=== PATIENT | male | born 1980 | race Caucasian/White ===

== ENCOUNTER 2017-07-28 21:23 | Emergency (ER) | payer SELFPAY ==
[~2017-07-28 21:23] MED LIST: CLIN1CAP5 PO; LORTA5 PO; MOBI15TA PO
[2017-07-28] MEDS ORDERED: HYDROmorphone HCL PF 1 MG/ML VIAL IV PUSH ONE (21:45)
[2017-07-28] MEDS ORDERED: SODIUM CHLOR 0.9% 1000 ML INJ 1,000 ML IV SCH (21:45)
[2017-07-28] MEDS ORDERED: ONDANSETRON HCL 4 MG/2 ML VIAL IV PUSH ONE (21:45)
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
[2017-07-28 22:00] LABS: AUTOMATED NEUTROPHIL # 20.5 TH/MM3 (1.8-7.7); BASOPHIL # 0.1 TH/MM3 (0-0.2); BASOPHIL % 0.3 % (0.0-2.0); EOSINOPHIL # 0.1 TH/MM3 (0-0.4); EOSINOPHIL % 0.3 % (0.0-4.0); HEMATOCRIT 42.9 % (39.0-51.0); LYMPH % 9.3 % (9.0-44.0); LYMPHOCYTE # 2.3 TH/MM3 (1.0-4.8); MEAN CELL VOLUME 99.1 FL (80.0-100.0); MEAN CORPUSCULAR HEMOGLOBIN 33.1 PG (27.0-34.0); MEAN CORPUSCULAR HGB CONC 33.4 % (32.0-36.0); MONO % 6.1 % (0.0-8.0); PLATELET COUNT 205 TH/MM3 (150-450); RED BLOOD COUNT 4.34 MIL/MM3 (4.50-5.90); RED CELL DISTRIBUTION WIDTH 13.1 % (11.6-17.2); WHITE BLOOD COUNT 24.5 TH/MM3 (4.0-11.0)
[2017-07-28 22:02] VITALS: BP 120/65; PULSE 82; RESP 18; TEMP 98.2; O2SAT 98
[2017-07-28 22:02] LABS: HEMO FLAGS DIFF FINAL
[2017-07-28 22:12] LABS: POTASSIUM 3.4 MEQ/L (3.5-5.1)
[2017-07-28 22:15] LABS: BICARBONATE 26.9 MEQ/L (21.0-32.0)
[2017-07-28] MEDS ORDERED: LIDOCAINE HCL 1% 50 ML VIAL INFIL ONE (22:15)
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
--- NOTE | 2017-07-28 22:41 | PD ---
Physical Exam Time Seen by Provider: 22:20 Data Data Last Documented VS Vital Signs Date Time Temp Pulse Resp B/P (MAP) Pulse Ox O2 Delivery O2 Flow Rate FiO2 07/28/17 22:02 98.2 82 18 120/65 (83) 98 Room Air Orders Orders Complete Blood Count With Diff (07/28/17 21:43) Basic Metabolic Panel (Bmp) (07/28/17 21:43) Sodium Chlor 0.9% 1000 Ml Inj (Ns 1000 M (07/28/17 21:45) Cefazolin Inj (Ancef Inj) (07/28/17 21:45) Hydromorphone Pf Inj (Dilaudid Pf Inj) (07/28/17 21:45) Ondansetron Inj (Zofran Inj) (07/28/17 21:45) Ct Brain W/O Iv Contrast(Rout) (07/28/17 21:43) Ct Cerv Spine W/O Contrast (07/28/17 21:43) Ct Facial Bones W/O Iv Cont (07/28/17 21:43) Lidocaine 1% Inj (50 Ml) (Xylocaine 1% I (07/28/17 22:15) Labs Laboratory Tests Test 07/28/17 21:50 White Blood Count 24.5 TH/MM3 Red Blood Count 4.34 MIL/MM3 Hemoglobin 14.3 GM/DL Hematocrit 42.9 % Mean Corpuscular Volume 99.1 FL Mean Corpuscular Hemoglobin 33.1 PG Mean Corpuscular Hemoglobin Concent 33.4 % Red Cell Distribution Width 13.1 % Platelet Count 205 TH/MM3 Mean Platelet Volume 7.6 FL Neutrophils (%) (Auto) 84.0 % Lymphocytes (%) (Auto) 9.3 % Monocytes (%) (Auto) 6.1 % Eosinophils (%) (Auto) 0.3 % Basophils (%) (Auto) 0.3 % Neutrophils # (Auto) 20.5 TH/MM3 Lymphocytes # (Auto) 2.3 TH/MM3 Monocytes # (Auto) 1.5 TH/MM3 Eosinophils # (Auto) 0.1 TH/MM3 Basophils # (Auto) 0.1 TH/MM3 CBC Comment DIFF FINAL Differential Comment Blood Urea Nitrogen 12 MG/DL Creatinine 0.85 MG/DL Random Glucose 122 MG/DL Calcium Level 9.1 MG/DL Sodium Level 139 MEQ/L Potassium Level 3.4 MEQ/L Chloride Level 103 MEQ/L Carbon Dioxide Level 26.9 MEQ/L Anion Gap 9 MEQ/L Estimat Glomerular Filtration Rate 101 ML/MIN MDM Medical Record Reviewed: Yes Supervised Visit with JADON: Yes Narrative Course I was asked by Dr. Ferris to repair a laceration on this patient. Please see his note for further details. Procedures Procedure Narrative LACERATION LOCATION: Right cheek LENGTH: 2 cm NUMBER OF STITCHES/RYANN: 4 simple interrupted REPAIR: The area of the laceration was prepped with Betadine and sterilely draped. The laceration was infiltrated with 1% lidocaine. The wound was copiously irrigated and explored without evidence of foreign body, tendon injury or neurovascular injury. The wound was closed using 6-0 Prolene. This was a single layer repair. A sterile dressing was applied. The patient was advised to keep the dressing clean and dry. Patient tolerated the procedure well. LACERATION LOCATION: Left cheek LENGTH: 1 cm NUMBER OF STITCHES/RYANN: 2 simple interrupted REPAIR: The area of the laceration was prepped with Betadine and sterilely draped. The laceration was infiltrated with 1% lidocaine. The wound was copiously irrigated and explored without evidence of foreign body, tendon injury or neurovascular injury. The wound was closed using 6-0 Prolene. This was a single layer repair. A sterile dressing was applied. The patient was advised to keep the dressing clean and dry. Patient tolerated the procedure well. LACERATION LOCATION: Left eyebrow LENGTH: 1cm NUMBER OF STITCHES/RYANN: 2 simple interrupted REPAIR: The area of the laceration was prepped with Betadine and sterilely draped. The laceration was infiltrated with 1% lidocaine. The wound was copiously irrigated and explored without evidence of foreign body, tendon injury or neurovascular injury. The wound was closed using 6-0 Prolene. This was a single layer repair. A sterile dressing was applied. The patient was advised to keep the dressing clean and dry. Patient tolerated the procedure well. Additional Instruction: Sutures out in 5 days. Disposition: 06 [facility] SERV[facility] Lilian Mccracken Jul 28, 2017 22:41
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
[2017-07-28] MEDS ORDERED: CEPH-460 PO (23:02)
[2017-07-28] MEDS ORDERED: HYDR-3534 PO (23:02)
[2017-07-28 23:50] VITALS: RESP 18
[2017-07-29 00:30] VITALS: BP 117/73
== END 2017-07-29 00:38 | disposition home or self-care (01) ==
LOC: PHED 21:23
DX: S02.2XXA Fracture of nasal bones, initial encounter for closed fracture (principal); S01.412A Laceration without foreign body of left cheek and temporomandibular area, initial encounter; S01.112A Laceration without foreign body of left eyelid and periocular area, initial encounter; S01.411A Laceration without foreign body of right cheek and temporomandibular area, initial encounter; Y04.0XXA Assault by unarmed brawl or fight, initial encounter; F17.210 Nicotine dependence, cigarettes, uncomplicated; Z87.74 Personal history of (corrected) congenital malformations of heart and circulatory system
CPT/HCPCS: 12013; 70450; 70486; 72125; 80048; 85025; 96365; 96375; 99285; J0690; J1170; J2405; J7030; L0150

== ENCOUNTER 2017-11-18 12:26 | Emergency (ER) | payer SELFPAY ==
[~2017-11-18] VITALS: Ht 157.5 cm; Wt 53.2 kg
[~2017-11-18 12:26] MED LIST changes: +CEPH-460 PO; -CLIN1CAP5 PO; +HYDR-3534 PO; -LORTA5 PO; -MOBI15TA PO
[2017-11-18 12:30] VITALS: BP 129/73; PULSE 83; RESP 18; TEMP 98.8; O2SAT 100
[2017-11-18] MEDS ORDERED: ASPIRIN 325 MG TAB PO ONE (12:45)
[2017-11-18] MEDS ORDERED: SODIUM CHLORIDE 0.9% FLUSH 10 ML FLUSH IVF PRN (12:45)
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
[2017-11-18 12:53] VITALS: O2SAT 98
[2017-11-18 12:59] LABS: AUTOMATED NEUTROPHIL # 7.9 TH/MM3 (1.8-7.7); BASOPHIL % 0.2 % (0.0-2.0); EOSINOPHIL % 0.2 % (0.0-4.0); HEMATOCRIT 44.2 % (39.0-51.0); HEMOGLOBIN 14.4 GM/DL (13.0-17.0); MEAN CELL VOLUME 100.1 FL (80.0-100.0); MEAN CORPUSCULAR HEMOGLOBIN 32.5 PG (27.0-34.0); MEAN CORPUSCULAR HGB CONC 32.5 % (32.0-36.0); MEAN PLATELET VOLUME 7.1 FL (7.0-11.0); MONO % 5.4 % (0.0-8.0); MONOCYTE # 0.6 TH/MM3 (0-0.9); NEUT % 75.2 % (16.0-70.0); PLATELET COUNT 222 TH/MM3 (150-450); RED BLOOD COUNT 4.41 MIL/MM3 (4.50-5.90); RED CELL DISTRIBUTION WIDTH 13.8 % (11.6-17.2); WHITE BLOOD COUNT 10.5 TH/MM3 (4.0-11.0)
[2017-11-18 13:09] LABS: CHLORIDE 102 MEQ/L (98-107); SODIUM (NA) 138 MEQ/L (136-145)
[2017-11-18 13:13] LABS: ALBUMIN 3.7 GM/DL (3.4-5.0); BICARBONATE 32.1 MEQ/L (21.0-32.0); BLOOD UREA NITROGEN 15 MG/DL (7-18); CALCIUM 9.2 MG/DL (8.5-10.1); GLUCOSE,RANDOM 117 MG/DL (74-106); MAGNESIUM 1.6 MG/DL (1.5-2.5)
[2017-11-18 13:14] VITALS: BP 97/60; PULSE 68; RESP 18
[2017-11-18 13:15] LABS: PROTHROMBIN TIME - PATIENT 10.6 SEC (9.8-11.6)
[2017-11-18 13:16] LABS: ALT (GPT) 23 U/L (12-78); AST (GOT) 15 U/L (15-37); CREATININE 0.75 MG/DL (0.60-1.30); GLOMERULAR FILTRATION RATE 116 ML/MIN (>89)
[2017-11-18 13:18] LABS: TOTAL BILIRUBIN ADULT 0.3 MG/DL (0.2-1.0); TOTAL PROTEIN 7.7 GM/DL (6.4-8.2)
[2017-11-18 13:19] LABS: ALKALINE PHOSPHATASE 91 U/L (45-117)
[2017-11-18 13:21] LABS: TROPONIN I LESS THAN 0.02 NG/ML (0.02-0.05)
--- NOTE | 2017-11-18 13:24 | RADRPT ---
EXAM DATE/TIME: 11/18/2017 12:54 [facility] COMPARISON: No previous studies available for comparison. INDICATIONS : Chest pain. MEDICAL HISTORY : Cardiovascular disease. hypoplastic left lung, smoker SURGICAL HISTORY : open heart as a child ENCOUNTER: Initial ACUITY: 2 days PAIN SCORE: 4/10 LOCATION: Bilateral chest FINDINGS: A single view of the chest demonstrates the there is increased density in the left chest with apical thickening left lung apex possible effusion. Numerous intact sternal wires. The cardiomediastinal c ontours are unremarkable. Osseous structures are intact. CONCLUSION: Increased density overlying the left chest is mostly heart. Right lung is clear. Shift of the mediast inum from left to right. Apical pleural thickening versus effusion. Collins Moon MD on November 18, 2017 at 13:21 Board Certified Radiologist. This report was verified electronically.
[2017-11-18 13:59] VITALS: BP 105/65; PULSE 64; O2SAT 99
--- NOTE | 2017-11-18 15:07 | EKG ---
Date Performed: 11/18/2017 Time Performed: 12:30:02 PTAGE: 37 years EKG: Baseline artifact present Sinus rhythm MARKED LEFT AXIS DEVIATION RIGHT BUNDLE BRANCH BLOCK possible LATERAL MYOCARDIAL INFARCTION Nonspeci fic T wave changes ABNORMAL ECG NO PREVIOUS TRACING DOCTOR: Wolfgang Sotomayor Interpretating Date/Time 11/18/2017 15:06:59
== END 2017-11-18 14:48 | disposition home or self-care (01) ==
LOC: PHED 12:26
DX: R07.89 Other chest pain (principal); F17.210 Nicotine dependence, cigarettes, uncomplicated; R94.31 Abnormal electrocardiogram [ECG] [EKG]
CPT/HCPCS: 71045; 80053; 83735; 84484; 85025; 85610; 85730; 93005; 99285